=== PATIENT | male | born 1950 | race Caucasian/White ===

== ENCOUNTER 2023-01-02 09:46 | Inpatient (IN) | payer OTHER ==
[~2023-01-02] VITALS: Ht 188 cm; Wt 98.9 kg
[2023-01-02 09:58] VITALS: BP_SYST 154
--- NOTE | 2023-01-02 10:03 | NUR ---
Placed in room 4 . Placed on cardiac rehabilitation specialist, blood pressure machine and pulse oximeter. To gown for exam. Side rails up. Report given to THI STEVENS.
--- NOTE | 2023-01-02 10:05 | NUR ---
MD FRIAS AT BEDSIDE FOR MSE.
[2023-01-02] MEDS ORDERED: hydrALAZINE HCL 20 MG/ML VIAL IVP ONE (10:15)
[2023-01-02 10:36] LABS: BASOPHILS % (AUTO) 0.4 % (0.0-2.0); EOSINOPHILS % (AUTO) 0.4 % (0.0-4.0); HEMOGLOBIN 15.3 g/dL (14.0-18.0); LYMPHOCYTES # (AUTO) 1.6 K/uL (1.0-5.5); LYMPHOCYTES % (AUTO) 27.1 % (20.5-51.5); MEAN CORPUSCULAR HEMOGLOBIN 32 pg (27-31); MEAN CORPUSCULAR HGB CONC 33 % (32-36); MEAN CORPUSCULAR VOLUME 96 fL (79.0-98.0); MONOCYTES # (AUTO) 0.5 K/uL (0.0-1.0); MONOCYTES % (AUTO) 8.1 % (1.7-9.3); NEUTROPHILS # (AUTO) 3.7 K/uL (1.8-7.7); PLATELET COUNT (AUTO) 206 K/uL (130-430); RED BLOOD CELL COUNT(AUTO) 4.82 MIL/uL (4.2-6.2); RED CELL DISTRIBUTION WIDTH 13.6 % (9.0-15.0); WHITE BLOOD COUNT (AUTO) 5.8 K/uL (4.8-10.8)
[2023-01-02 10:41] LABS: ANION GAP 6 (5-15); CALCIUM 8.2 mg/dL (8.4-11.0); CHLORIDE 102 mmol/L (98-107); CREATININE 1.04 mg/dL (0.55-1.30); GLUCOSE 110 mg/dL (70-99); UREA NITROGEN, BLOOD 17 mg/dL (8-21)
[2023-01-02 10:47] LABS: GFR AFRICAN AMERICAN 91 mL/min (>90)
[2023-01-02 10:55] LABS: ALANINE AMINOTRANSFERASE 19 U/L (12-78); ALBUMIN 3.7 g/dL (3.4-4.8); ASPARTATE AMINOTRANSFERASE 14 U/L (10-37); THYROID STIMULATING HORMONE 3.11 uIu/mL (0.34-4.82); TOTAL BILIRUBIN 1.4 mg/dL (0.0-1.0)
--- NOTE | 2023-01-02 12:11 | NUR ---
Admit bed requested Patient will be admitted to care of Dr. JAUREGUI. Admitted to TELEMETRY unit. Diagnosis NEW ONSET ATRIAL FIBRILLATION Inpatient (Yes or No) YES Observation (Yes or No)NO Orientation concerns or request close to nursing station (Yes or No) NO Covid Status N/A On vent or bipap NO Isolation requirements NO Needs a sitter NO From Home (Yes or if No enter name of facility) HOME Requires Dialysis (Yes or No) NO Med Rec Completed (Yes of No) N/A, NO HOME MEDS PER PT
[2023-01-02] MEDS ORDERED: MORPHINE 2 MG/ML INJ. SYRINGE IVP PRN (13:00)
[2023-01-02] MEDS ORDERED: LOSARTAN POTASSIUM 50 MG TABLET (COZAAR) PO ONE (13:00)
[2023-01-02] MEDS ORDERED: HYDROcodone/ACETAMIN 10-325 MG TAB PO PRN (13:00)
[2023-01-02] MEDS ORDERED: ONDANSETRON HCL 4 MG/2 ML VIAL IVP PRN (13:00)
[2023-01-02] MEDS ORDERED: APIXABAN 2.5 MG TABLET PO ONE (13:15)
--- NOTE | 2023-01-02 14:30 | NUR ---
Patient will be admitted to care of DR. JAUREGUI. Admitted to TELEMETRY unit. Will go to room 012A. Belongings list completed. Complete and up to date summary report printed. SBAR report to be given at bedside with opportunity for questions. REPORT TO ELIESER STEVENS.
[2023-01-02 14:40] VITALS: BP_SYST 157
--- NOTE | 2023-01-02 15:00 | NUR ---
Admission note: report received from charge nurse Michelle STEVENS after nurse came back from lunch. Patient is awake alert x4. Call light in reach. Bed in the lowest position. Side rails x2 up. Oriented room and call light and instructed to call help for anything. Assessment is done, vital checked and admission data obtained. No pain or discomfort at this time. Will continue patient care.
--- NOTE | 2023-01-02 15:06 | NUR ---
CONSULTATION PAGED/CALLED Reason for Consultation: [] NEW ONSET AFIB Person Who was Notified: [] DR Martin HOUSTON Consulting Physician: [] DR Martin HOUSTON User Support Specialist Specialty: [] CARDIOLOGY Ordering Physician: [] DR JAUREGUI
[2023-01-02 18:24] VITALS: BP_SYST 180
[2023-01-02] MEDS ORDERED: hydrALAZINE HCL 20 MG/ML VIAL IVP PRN (18:45)
--- NOTE | 2023-01-02 19:28 | NUR ---
Closing note: Reported to Domingo. Patient is awake alert x4. Call light in reach. Bed in the lowest position and side rails x2 up. Endorse to follow up with the blood pressure later and continue patient care.
[2023-01-02 20:30] VITALS: BP_SYST 139
[2023-01-02] MEDS: APIXABAN 2.5 MG TABLET PO SCH (20:42)
--- NOTE | 2023-01-02 22:12 | NUR ---
B.P. stable 139/93 hr 89 PATIENT AWAKE ALERT ambulates to rest room CALL CASTILLO GIVEN to patient procedures explained no SOB noted 02 SAT 95 % room air / .
[2023-01-03 00:22] VITALS: BP_SYST 102
--- NOTE | 2023-01-03 02:49 | NUR ---
Hourly Rounding patient is resting verbally responsive call sheikh with patient skin warm also dry / .
--- NOTE | 2023-01-03 03:34 | NUR ---
NPO patient is NPO for AM procedure & alert and aware .
[2023-01-03 05:30] LABS: BASOPHILS % (AUTO) 0.3 % (0.0-2.0); EOSINOPHILS # (AUTO) 0.1 K/uL (0.0-0.4); EOSINOPHILS % (AUTO) 0.8 % (0.0-4.0); HEMATOCRIT 46.7 % (36-54); HEMOGLOBIN 15.5 g/dL (14.0-18.0); LYMPHOCYTES # (AUTO) 1.7 K/uL (1.0-5.5); LYMPHOCYTES % (AUTO) 26.1 % (20.5-51.5); MEAN CORPUSCULAR HEMOGLOBIN 32 pg (27-31); MEAN CORPUSCULAR HGB CONC 33 % (32-36); MEAN CORPUSCULAR VOLUME 95 fL (79.0-98.0); MONOCYTES # (AUTO) 0.5 K/uL (0.0-1.0); MONOCYTES % (AUTO) 7.4 % (1.7-9.3); NEUTROPHILS # (AUTO) 4.4 K/uL (1.8-7.7); NEUTROPHILS % (AUTO) 65.4 % (40.0-70.0); PLATELET COUNT (AUTO) 200 K/uL (130-430); RED BLOOD CELL COUNT(AUTO) 4.91 MIL/uL (4.2-6.2); RED CELL DISTRIBUTION WIDTH 13.6 % (9.0-15.0); WHITE BLOOD COUNT (AUTO) 6.7 K/uL (4.8-10.8)
[2023-01-03 06:11] LABS: ALBUMIN 3.2 g/dL (3.4-4.8); CALCIUM 8.2 mg/dL (8.4-11.0); CREATININE 0.96 mg/dL (0.55-1.30); TOTAL BILIRUBIN 1.9 mg/dL (0.0-1.0)
--- NOTE | 2023-01-03 07:31 | NUR ---
Initial Note: report received from Domingo. Patient is awake alert x4. No pain or discomfort at this time. NPO for ultrasound abdomin. Assessment is done and vital checked. Will continue patient care. Bed in the lowest position and side rails x2 up. Call light in reach.
[2023-01-03 08:00] VITALS: BP_SYST 125
[2023-01-03] MEDS: LOSARTAN POTASSIUM 50 MG TABLET (COZAAR) PO SCH (08:28)
[2023-01-03] MEDS: APIXABAN 2.5 MG TABLET PO SCH ×2 (08:28→21:03)
--- NOTE | 2023-01-03 08:29 | NUR ---
Note: Ultrasound is performing at the bedside. Patient tolerated well. No pain or discomfort.
[2023-01-03 10:51] LABS: INR 1.1 (0.80-1.20); PROTHROMBIN TIME 11.2 SECS (9.5-12.5)
[2023-01-03] MEDS ORDERED: MULTIVITAMINS TAB 1 TABLET PO ONE (11:00)
[2023-01-03] MEDS ORDERED: THIAMINE HCL 100 MG TABLET GT ONE (11:00)
[2023-01-03] MEDS ORDERED: FOLIC ACID 1 MG TABLET PO ONE (11:00)
[2023-01-03 11:25] VITALS: BP_SYST 116
--- NOTE | 2023-01-03 12:02 | NUR ---
Note: patient is awake and alert. self feed for the lunch. No pain or discomfort. Will continue to monitor.
--- NOTE | 2023-01-03 15:11 | NUR ---
Note: Dr. Martin Shepherd is here to see patient. Plan of care is discussed. Patient is awake alert x4. No pain or discomfort at this time.
[2023-01-03 15:23] VITALS: BP_SYST 114
--- NOTE | 2023-01-03 15:27 | NUR ---
Industrial Machinery Mechanic Assessment: In to see patient this afternoon at bedside. The patient is alert and oriented. I introduced myself to the patient and explained why I was in to speak to him. The patient was in agreement to speaking to me. The patient resides in a single-story home alone. He is independent with his care needs. He uses no assistive devices, walks regularly in the community, and still drives. The patient does not have a Power of Personnel Recruiter. He has an extensive support system with local friends and his children who live in [place], [place]. His PCP is Dr. Tanner in [place]. The discharge plan is to return home. His friends will transport him home and assist him as needed. per pateint, there are no anticipated needs for discharge. The patient states he didn't feel as if home health services were needed.
[2023-01-03 19:00] VITALS: BP_SYST 108
--- NOTE | 2023-01-03 19:17 | NUR ---
Closing note: Reported to Casa. Patient is awake alert x4 and watching TV in bed. No pain or discomfort at this time. Endorse to continue patient care.
[2023-01-03 20:00] VITALS: BP_SYST 108
--- NOTE | 2023-01-03 20:00 | NUR ---
pt.assessed.v/s assessed values note h/r value wnl.no c/o pain,nausea no requests posited@this [email or web address] to reposition self.call light/telephone w/in access of the pt.
[2023-01-04] VITALS (15 sets, daily range): BP systolic 97–134
--- NOTE | 2023-01-04 | NUR ---
pt.assessed.v/s assessed values note h/r status wnl.no c/o pain,nausea no requests posited@this [email or web address] to reposition self.call light/telephone w/in access of the pt.
--- NOTE | 2023-01-04 04:00 | NUR ---
pt.assessed.v/s assessed values note h/r status wnl.no c/o pain,nausea.no requests posited@this [email or web address] to reposition self.call light/telephone w/in access of the pt.
[2023-01-04 05:55] LABS: BASOPHILS % (AUTO) 0.3 % (0.0-2.0); EOSINOPHILS # (AUTO) 0.1 K/uL (0.0-0.4); EOSINOPHILS % (AUTO) 1.3 % (0.0-4.0); HEMATOCRIT 46.1 % (36-54); HEMOGLOBIN 15.2 g/dL (14.0-18.0); LYMPHOCYTES # (AUTO) 1.9 K/uL (1.0-5.5); LYMPHOCYTES % (AUTO) 31.6 % (20.5-51.5); MEAN CORPUSCULAR HEMOGLOBIN 31 pg (27-31); MEAN CORPUSCULAR HGB CONC 33 % (32-36); MEAN CORPUSCULAR VOLUME 95 fL (79.0-98.0); MONOCYTES # (AUTO) 0.5 K/uL (0.0-1.0); MONOCYTES % (AUTO) 7.8 % (1.7-9.3); NEUTROPHILS # (AUTO) 3.6 K/uL (1.8-7.7); PLATELET COUNT (AUTO) 200 K/uL (130-430); RED BLOOD CELL COUNT(AUTO) 4.85 MIL/uL (4.2-6.2); RED CELL DISTRIBUTION WIDTH 13.6 % (9.0-15.0); WHITE BLOOD COUNT (AUTO) 6.1 K/uL (4.8-10.8)
[2023-01-04 06:12] LABS: CALCIUM 8.4 mg/dL (8.4-11.0); CREATININE 1.03 mg/dL (0.55-1.30)
[2023-01-04] MEDS: APIXABAN 2.5 MG TABLET PO SCH ×2 (08:18→22:06)
[2023-01-04] MEDS: THIAMINE HCL 100 MG TABLET GT SCH (08:19)
[2023-01-04] MEDS: LOSARTAN POTASSIUM 50 MG TABLET (COZAAR) PO SCH (08:20)
[2023-01-04] MEDS: FOLIC ACID 1 MG TABLET PO SCH (08:22)
[2023-01-04] MEDS: MULTIVITAMINS TAB 1 TABLET PO SCH (08:22)
[2023-01-04] MEDS ORDERED: AMIODARONE HCL 150 MG in D5W 100 ML IV ONE (10:30)
[2023-01-04] MEDS ORDERED: AMIODARONE HCL 450 MG in D5W 241 ML IV SCH (10:45)
--- NOTE | 2023-01-04 11:25 | NUR ---
PT TRANSFERRED TO ICU 2 FOR CARDIAC MEDICATION INTERVENTION , REPORT GIVEN TO HILDA HOLLOWAY. PT WAS ON STABLE CONDITION ON TRANSFER.
--- NOTE | 2023-01-04 11:30 | NUR ---
TO ICU RECEIVED PT VIA BED, ALERT, ORIENTED, ABLE TO FOLLOW SIMPLE COMMANDS, PT TO BE STARTED ON AMIODARONE DRIP ONCE MEDS MADE AVAILABLE BY PHARMACY DEPT. ORIENTED PT TO SURROUNDINGS, CALL LIGHT IN REACH.
--- NOTE | 2023-01-04 11:55 | NUR ---
MEDS AMIODARONE 150 MG IV DRIP INITIATED. REPORT GIVEN TO SAUMYA STEVENS., FOR CONTINUITY OF CARE.
--- NOTE | 2023-01-04 12:00 | NUR ---
Patient received in ICU bed 21 having received report from HILDA Beckwith and his RN preceptee. Patient is alert and oriented x 4 with heart rate controlled afib. RN introduced himself and charge account clerk stated amiodarone bolus. Gave patient orientation to room; patient indicated understanding and explained he was given similar orientation in [facility]. Patient given lunch and made comfortable for the afternoon.
--- NOTE | 2023-01-04 18:26 | NUR ---
End of Shift Summary: Patient has been resting through the remainder of the afternoon and has tolerated the amiodarone drip well. Heart rate has subsided as a very controlled afib no in the low 60's. Patient has indicated no discomfort or issues at this time.
[2023-01-04] MEDS ORDERED: AMIODARONE HCL 450 MG/9 ML VIAL IV ONE ×2 (21:03→21:04)
--- NOTE | 2023-01-04 23:30 | NUR ---
AMIODARONE GTT DISCONTINUED PATIENT HR DROPPED INTO THE 40S WHILE ASLEEP. HR < 100 WITHOUT DRIP.
[2023-01-05] VITALS (12 sets, daily range): BP systolic 93–124
[2023-01-05 06:17] LABS: BASOPHILS % (AUTO) 0.2 % (0.0-2.0); EOSINOPHILS # (AUTO) 0.1 K/uL (0.0-0.4); EOSINOPHILS % (AUTO) 1.2 % (0.0-4.0); HEMATOCRIT 45.7 % (36-54); HEMOGLOBIN 15.2 g/dL (14.0-18.0); LYMPHOCYTES # (AUTO) 1.6 K/uL (1.0-5.5); LYMPHOCYTES % (AUTO) 17.7 % (20.5-51.5); MEAN CORPUSCULAR HEMOGLOBIN 32 pg (27-31); MEAN CORPUSCULAR HGB CONC 33 % (32-36); MEAN CORPUSCULAR VOLUME 95 fL (79.0-98.0); MONOCYTES # (AUTO) 0.7 K/uL (0.0-1.0); MONOCYTES % (AUTO) 7.6 % (1.7-9.3); NEUTROPHILS # (AUTO) 6.7 K/uL (1.8-7.7); NEUTROPHILS % (AUTO) 73.3 % (40.0-70.0); PLATELET COUNT (AUTO) 210 K/uL (130-430); RED BLOOD CELL COUNT(AUTO) 4.79 MIL/uL (4.2-6.2); RED CELL DISTRIBUTION WIDTH 13.3 % (9.0-15.0); WHITE BLOOD COUNT (AUTO) 9.1 K/uL (4.8-10.8)
[2023-01-05 07:02] LABS: ALBUMIN 3.3 g/dL (3.4-4.8); CALCIUM 8.5 mg/dL (8.4-11.0); CREATININE 1.19 mg/dL (0.55-1.30); TOTAL BILIRUBIN 1.5 mg/dL (0.0-1.0)
[2023-01-05] MEDS: THIAMINE HCL 100 MG TABLET GT SCH (08:00)
[2023-01-05] MEDS: APIXABAN 2.5 MG TABLET PO SCH (08:01)
[2023-01-05] MEDS: FOLIC ACID 1 MG TABLET PO SCH (08:02)
[2023-01-05] MEDS: MULTIVITAMINS TAB 1 TABLET PO SCH (08:02)
[2023-01-05] MEDS: LOSARTAN POTASSIUM 50 MG TABLET (COZAAR) PO SCH (08:02)
--- NOTE | 2023-01-05 12:16 | NUR ---
SPOKE WITH PARTHA REQUESTING ORDERS FROM DR. Edgar LUNSFORD.
[2023-01-05] MEDS ORDERED: APIX2.5T PO (12:36)
[2023-01-05] MEDS ORDERED: METO-540 PO (12:36)
[2023-01-05] MEDS ORDERED: LOSA50TA3 PO (12:36)
--- NOTE | 2023-01-05 13:31 | NUR ---
PT DISCHARGED OUT ON WHEELCHAIR, STATES HAS ALL BELONGINGS, VS STABLE, BP 122/70, HR 86, O2 SAT 99, RR 18/PT IN ZERO DISTRESS, AMBULATED TO [place] OWN VEHICLE WITH STEADY GAIT//MW
[2023-01-05] MEDS ORDERED: DEXTROSE 50%-WATER 50 ML DISP.SYRIN IVP PRN (14:15)
[2023-01-05] MEDS ORDERED: INSULIN LISPRO SLIDING SCALE 100 UNITS/ML, 3 ML VIAL (humaLOG) SUBCUT PRN (14:15)
[2023-01-05] MEDS ORDERED: GLUCOSE (DEXTROSE) ORAL GEL -Adults PO PRN (14:15)
[2023-01-05] MEDS ORDERED: D5W 1,000 ML IV PRN (14:15)
[2023-01-05] MEDS ORDERED: METOPROLOL SUCCINATE 25 MG TAB.SR.24H (TOPROL XL) PO SCH (21:00)
== END 2023-01-05 13:25 | disposition home or self-care (01) | DRG 305 ==
LOC: SED 09:46 → STU 12:08 → SIC 01-04 11:15
PROVIDERS: ADMIT Family Medicine; ATTEND Family Medicine
DX: I16.0 Hypertensive urgency (principal); I42.6 Alcoholic cardiomyopathy; I48.91 Unspecified atrial fibrillation; I10 Essential (primary) hypertension; F10.90 Alcohol use, unspecified, uncomplicated; Y90.9 Presence of alcohol in blood, level not specified
CPT/HCPCS: 36415; 71045; 76700-TC; 80048; 80053; 80061; 83735; 83880; 84443; 84484; 85025; 85610-TC; 85730-TC; 93005; 93306; 96374; 99285; G0378; J0282; J0360; J7060